=== PATIENT | female | born 1945 | race Caucasian/White ===

== ENCOUNTER 2018-05-01 07:30 | Inpatient (IN) ==
[2018-06-05] MEDS ORDERED: Vancomycin Inj 1gm vial ONE ×2 (05:10→07:04)
[2018-06-05] MEDS ORDERED: ceFAZolin Inj 2gm (Premix) 2 GM/50 ML BAG IV ONE ×2 (05:10→06:00)
[2018-06-05] MEDS ORDERED: LIDOCAINE W/ SODIUM BICARB 0.5 ML SYR ONE (05:11)
[2018-06-05] MEDS ORDERED: Sodium Chloride 0.9% 250 ML ONE ×2 (05:11→05:31)
[2018-06-05] MEDS ORDERED: Lactated Ringers 1,000 ML PRIMARY IV ONE ×3 (05:11→09:50)
[2018-06-05] MEDS ORDERED: LIDOCAINE W/ SODIUM BICARB 0.5 ML SYR SUBD ONE (06:00)
[2018-06-05] MEDS ORDERED: Nasal Sanitizer POPSWAB ampule 3 AMP (Nozin) PREOP DOSE ENOS SCH (06:00)
[2018-06-05 06:30] LABS: BILIRUBIN,URINE NEGATIVE (NEG); CLARITY,URINE CLEAR (CLEAR); COLOR,URINE YELLOW (Y); GLUCOSE, URINE (UA) NEGATIVE (NEG); OCCULT BLOOD,URINE NEGATIVE (NEG); PH,URINE 6.5 (5.0-8.5); PROTEIN,URINE NEGATIVE (NEG); UROBILINOGEN,URINE 0.2 EU/dL (0.2)
[2018-06-05 06:34] LABS: BACTERIA,URINE FEW; SQUAMOUS EPITHELIAL CELL,UR MANY; URINE CASTS FEW; URINE SAMPLE TYPE CLEAN CATCH URINE
[2018-06-05] MEDS ORDERED: Gentamicin Inj 40 MG/ML VIAL ONE (07:03)
[2018-06-05] MEDS ORDERED: Propofol 2,000 MG/200 ML VIAL IV ONE (07:03)
[2018-06-05] MEDS ORDERED: Sodium Chloride 0.9% vial 40 ML ONE (07:03)
[2018-06-05] MEDS ORDERED: BUPivacaine Liposome/PF (Exparel) Inj 20ml vial INFIL ONE (07:04)
[2018-06-05] MEDS ORDERED: BACITRACIN 50,000 UNIT VIAL IRRIG ONE ×2 (07:04→12:23)
[2018-06-05 07:10] LABS: BLOOD UREA NITROGEN 19 mg/dL (7-22)
[2018-06-05] MEDS ORDERED: REMIFENTANIL 1 MG/1 ML IV ONE ×2 (07:13→12:32)
[2018-06-05] MEDS ORDERED: fentaNYL Inj 250 MCG/5 ML VIAL ONE (07:13)
[2018-06-05] MEDS ORDERED: MIDAZOLAM 5 MG/1 ML ONE (07:13)
[2018-06-05] MEDS ORDERED: REMIFENTANIL HCL 2 MG VIAL IV ONE (07:13)
[2018-06-05 07:15] LABS: BASOPHILS # (AUTO) 0.03 10*3/UL; BASOPHILS % (AUTO) 0.4 % (0-1); EOSINOPHILS # (AUTO) 0.42 10*3/UL; EOSINOPHILS % (AUTO) 6.3 % (0-8); Hematocrit [HCT] 43.3 % (37.0-47.0); Hemoglobin [HGB] 15.8 g/dL (12.0-16.0); LYMPHOCYTES # (AUTO) 2.69 10*3/uL; MEAN CORPUSCULAR HGB CONC 36.5 g/dL (33-37); MEAN CORPUSCULAR VOLUME 85.1 FL (81-99); MEAN PLATELET VOLUME 10.3 FL (7.4-12.2); MONOCYTES # (AUTO) 0.55 10*3/UL (0.3-0.8); MONOCYTES % (AUTO) 8.2 % (5-15); NEUTROPHILS # (AUTO) 2.97 10*3/UL; NEUTROPHILS % (AUTO) 44.7 % (50-80); RED BLOOD COUNT 5.09 10^6/uL (4.20-5.40)
[2018-06-05 07:18] LABS: PLATELET MORPHOLOGY COMMENT NORMAL MORPHOLOGY (NORM); RBC MORPHOLOGY COMMENT NORMAL MORPHOLOGY (NORM); WBC MORPHOLOGY COMMENT NORMAL MORPHOLOGY (NORM)
[2018-06-05] MEDS ORDERED: VECURONIUM BROMIDE 10 MG VIAL ONE (07:20)
[2018-06-05] MEDS ORDERED: KETAMINE HCL 100 MG/2 ML SYRINGE IV ONE (07:22)
[2018-06-05] MEDS ORDERED: SCOPOLAMINE HYDROBROMIDE 1.5 MG - 1 EACH PATCH TRANSDERM ONE (07:25)
[2018-06-05] MEDS ORDERED: Acetaminophen 1000mg Inj 1,000 MG/100 ML VIAL IV ONE (07:26)
[2018-06-05] MEDS ORDERED: BUPIVACAINE 0.25% W/ EPI - 10 ML VIAL ONE (08:02)
[2018-06-05] MEDS ORDERED: PHENYLEPHRINE 10,000 MCG/1 ML VIAL ONE (08:20)
[2018-06-05] MEDS ORDERED: DEXAMETHASONE PF 10 MG/1 ML VIAL ONE (08:32)
[2018-06-05] MEDS ORDERED: Hetastarch 6% + NS 500 ML IV ONE (08:43)
[2018-06-05] MEDS ORDERED: ONDANSETRON 4 MG/2 ML VIAL ONE (09:50)
[2018-06-05] MEDS ORDERED: TRANEXAMIC ACID 1,000 MG / 10 ML VIAL ONE (10:27)
[2018-06-05] MEDS ORDERED: Propofol 1,000 MG/100 ML VIAL IV ONE (10:33)
[2018-06-05] MEDS ORDERED: Sodium Chloride 0.9% vial 10 ML ONE (12:23)
[2018-06-05] MEDS ORDERED: PROPOFOL 10 MG/1 ML (200 MG/20 ML) VIAL IV ONE (13:14)
[2018-06-05] MEDS ORDERED: Prochlorperazine Edisylate Inj 10mg/2ml vial IVP PRN ×2 (14:24→15:47)
[2018-06-05] MEDS ORDERED: LIDOCAINE W/ SODIUM BICARB 0.5 ML SYR SUBD PRN (14:24)
[2018-06-05] MEDS ORDERED: ATROPINE SULFATE 0.4 MG/1 ML VIAL IVP PRN (14:24)
[2018-06-05] MEDS ORDERED: HYDROmorphone 2 MG/1 ML IVP PRN (14:24)
--- NOTE | 2018-06-05 14:27 | CRNA.PROGR ---
Anesthesia Recovery Phase I - Post Anesthesia Evaluation Patient's Condition on Arrival in Phase I: Stable Patient's Condition on Arrival in Phase II: Stable Pain Level: 2
--- NOTE | 2018-06-05 14:27 | CRNA.PROGR ---
Anesthesia Time - Procedure/Recovery Time Start Date: 06/05/18 End Date: 06/05/18 Anesthesia : Time In: 07:36 Anesthesia : Time Out: 14:13 Anesthesia : Total Time: 397 - Total Anesthesia Time Total Anesthesia Time (minutes): 397 - Other Weight: 78.471 kg Height: 5 ft 7 in Body Mass Index (BMI): 27.1 Physical Status: P2 (HTN,AGE) Anesthesia Type: General Anesthesia : ET
--- NOTE | 2018-06-05 14:28 | CRNA.PROGR ---
Post Anesthesia Phase II - Post Anesthesia Phase II Patient Stable and Discharged To: Med/Surg Care Assumed By Surgeon: Brent Payne MD Temperature: 96.8 F Pulse Rate: 80 Respiratory Rate: 16 Blood Pressure: 129/91 Pulse Ox: 95 Total Damaris Score at Discharge: 9 Post Anesthesia Discharge Criteria Met: Yes
[2018-06-05] MEDS ORDERED: Lactated Ringers 1,000 ML PRIMARY IV SCH (14:30)
[2018-06-05] MEDS ORDERED: HYDROmorphone 2 MG/1 ML ONE (15:01)
--- NOTE | 2018-06-05 15:03 | GEN.OPNOTE ---
Operative Note Surgery Date: 06/05/18 Preoperative Diagnosis: 1. Low back pain. 2. Left lower extremity radiculopathy. 3. Right lower extremity radiculopathy. 4. Multilevel lumbar degenerative disc disease. 5. Multilevel lumbar spondylosis, most advanced L4- 5 with facet arthropathy/hypertrophy and widening of the facet joints and fluid in the facet joints bilaterally. 6. Anterior listhesis L4 on L5. 7. Moderately severe lumbar stenosis L4-5 with bilateral lateral recess stenosis L4-5, worse on the left. Postoperative Diagnosis: 1. Low back pain. 2. Left lower extremity radiculopathy. 3. Right lower extremity radiculopathy. 4. Multilevel lumbar degenerative disc disease. 5. Multilevel lumbar spondylosis, most advanced L4- 5 with facet arthropathy/hypertrophy and widening of the facet joints and fluid in the facet joints bilaterally. 6. Anterior listhesis L4 on L5. 7. Severe lumbar stenosis L4-5 with bilateral lateral recess stenosis L4-5, worse on the left. Procedure: 1.) Partial L4 laminectomy with medial facetectomies and foramino tomies for decompression of the severe central canal, lateral recess, and neuroforaminal stenosis at the L4-5 level. (CPT code: 81376). 2.) Arthrodesis, combined posterolateral and posterior interbody technique, L4-5. (CPT code: 90829). 3.) Insertion 10 mm x 11 mm x [address] titanium lumbar interbody cage filled in the center with autograft into the L4-5 interspace for fusion of the L4-5 interspace. (CPT code: 21682). 4.) Non-segmental posterolateral instrumentation L4-5 using the [employer] Deedee 3 pedicle screw and emilie system. (CPT code: 58448). 5.) Use of autograft, harvested through the same incision, cleaned of soft tissue and morselized, for interbody and posterolateral fusion. (CPT code: 16764). 6.) Use of 20cc [employer] Vitoss Bimodal synthetic bone fusion product/promotor (allograft) and 20 cc [employer] BIO DBM Putty Plus cancelleous (allograft) for interbody and posterolateral fusion. (CPT code: 86797). 7.) Use of the [employer] computer assisted neuronavigation sys tem for cannulization of the L4 and L5 pedicles bilaterally for the subsequent placement of the L4 and L5 pedicle screws bilaterally. (CPT code: 45247). 8.) Use of intra-operative fluoroscopy for localization of the correct surgical level and for final confirmation of the position of the L4-5 intervertebral cage and final confirmation of the position of the L4-5 posterolateral hardware elements. 9.) Use of intra-operative neuromonitoring including free running EMG's, triggered EMG's, and SSEP's. Surgeon: Brent Payne MD Casino Cage Supervisor: DARRYL Paul Anesthesia Provider: Radha Sparks CRNA Anesthesia Type: General (500) Estimated Blood Loss (mL): 500 Fluids: See anesthesia record Pathology: None Indications: Ms. Paulina Bernabe is a 72 year old female with back pain that gets to a 9/10 in intensity and she has a difficult time walking secondary to her back pain. She also has pain that radiates through her left buttocks and hip and through the posterior aspect of her thigh and calf and down the ankle. She denies any weakness but did have numbness and tingling in her feet bilaterally secondary to neuropathy. Ms. Bernabe had an MRI scan that demonstrated autofusion of the L5-S1 level with adjacent level degenerative disc disease and advanced arthropathy and hypertrophy at the adjacent L4-5 facet joints with anterolisthesis of L4 and L5 with widening of the facet joints and fluid in the facet joints, resulting in moderately severe lumbar central canal stenosis and bilateral lateral recess stenosis worse on the left. Ms. Bernabe failed to improve with non-operative therapies. We discussed proceeding with an L4-5 lumbar interbody and posterolateral instrumented fusion to durably address her symptoms and she wished to proceed with that surgery for which she presents today. Findings: 1.) Severe lumbar central canal stenosis, L4-5. 2.) Severe bilateral lateral recess stenosis, L4-5. 3,) Severe bilateral neuroforaminal stenosis, L4-5. 4.) Dural adhesions to thickened ligamentum flavum and bony canal secondary to epidural steroid material. 5.) Marked facet arthropathy and hypertrophy, L4-5 with marked widening of the facet joint on the right. 6.) Facet joint arthropathy with widening of the facet joint, L3-4 on the left. Complications: Small, 2-3 mm, linear durotomy lateral thecal sac on the left just rostral to the L4-5 disc space sewn up primarily with 6-0 prolene suture; water tight closure by Valsalva maneuver. Operative Summary: Ms. Lea was met in the pre-operative area. Her surgical history and physical in her chart was reviewed. I reviewed with her the procedure to be performed and we were in agreement on the procedure and this matched what was written on the patient's consent form. I answered any questions that she or her had before she was taken back to the operating room suite. Ms. Bernabe was brought back to the operating room suite. She was put under general anesthesia and intubated by the anesthesia staff. She had a Barrios catheter placed or bladder for the procedure. She had pneumatic compression hose placed on her lower legs bilaterally. The Srinivasa was carefully rolled over onto the Carroll surgical table. Her arms were gently positioned upwards with her shoulders abducted less than 90. Her arms were well-padded with foam padding on top of the padding the surgical armboards. The region of her chest and axilla was checked bilaterally to make sure that there were no pressure points over the region of the brachial plexus bilaterally. Her breasts were checked be below the chest pad of the Carroll table with no pressure points over the nipples. All bony prominences were well padded. Her Barrios catheter was checked be free from kinks. Her pneumatic compression hose was attached and pneumatic compression device. The C-arm fluoroscopy unit was used to help localize the skin incision for the approach to the intended surgical level. The skin was marked with a skin marker and crosshatches were made with a skin marker as well. Ms. Bernabe was prepped and draped in the usual and standard fashion. She was given 2 g of Ancef and a gram of vancomycin IV for perioperative antibiosis. She was given 10 mg of Decadron IV. A standard surgical timeout was performed identifying the correct patient, the correct procedure, and the correct equipment being available for the procedure. The intended skin incision was injected subcutaneously with quarter percent Marcaine with 1 in 200,000 epinephrine. 10 mL of local anesthetic was used. The skin was incised with a 10 blade scalpel and all dermal and superficial bleeding points were controlled with bipolar cautery. Dissection was continued down to the subcutaneous tissue to the lumbar fascia. The lumbar fascia was incised along the borders of the spinous processes and subperiosteal dissection was performed down the spinous processes and out over the lamina with Bovie cautery. When the inferior aspect of the lamina was identified a [place] 4 was placed underneath the lamina and the level was localized with lateral fluoros copy. Continued subperiosteal dissection was performed until the final exposure was of the inferior aspect the L3 lamina of the L4 lamina and the L5 lamina. The dissection was continued laterally over the L3-4 and L4-5 and L5-S1 facet joints and out laterally over the L4 and L5 transverse processes. Cerebellar Gelpi retractors were placed for self-retaining retraction. Soft tissue was cleaned over the posterior aspect of the spine using Bovie cautery as well as a large Leksell rongeur. Extensive decortication of the L4 and L5 transverse processes as well as the lateral aspect of the L3-4 facet joint and the lateral and posterior aspect of the L4-5 facet joint after removing the hypertrophied posterior aspect of the L4-5 facet joint with a large Leksell rongeur bilaterally was performed. The L5 lamina was decorticated as well. All decortication was performed with a high-speed Pusher drill with a matchstick bit. The bone dust created was collected and saved to be used as autograft for the fusion portion of the procedure. The Shaun neuro navigation reference arc was securely attached to the L3 spinous process and a spin was performed with the [facility] 3-D fluoroscopy unit. The Shaun neuro navigation pedicle probe was then used to cannulate the L4 and L5 pedicles bilaterally. A Jamshidi needle was then inserted into the left L4 pedicle and 10 mL of vertebral body bone marrow was collected and used to saturate 10 mL of the [employer] Vitoss synthetic bone product intended for the posterior lateral fusion and the Jamshidi needle was then placed into the left L5 pedicle and another 10 mL of vertebral body bone marrow was collected and used to saturate the second 10 mL of the Vitoss synthetic bone product. The internal aspects of the pedicles were palpated with a small ball-tip instrument. The pedicles were then tapped with the appropriate size Shaun Rudy 3 pedicle tap. The internal aspect of the pedicles were palpated with a small ball-tip instrument again. The pedicle screws were then placed. 5.5 x 55 mm pedicle screws were placed into the L4 pedicles bilaterally. 6.5 mm x 50 mm pedicle screws were placed into the L5 pedicles bilaterally. Ms. Bernabe's bone was somewhat soft but the pedicle screws obtained good purchase in the pedicle and vertebral body bone at each level bilaterally. The pedicle screws were then interrogated with triggered EMGs all demonstrating sufficiently high impedance with the lowest impedance recording being 26 mm indicating that all the pedicle screws were not in close proximity to nerve str uctures. Another spin was performed with the [employer] 3-D fluoroscopy unit providing further confirmation that the pedicle screws were indeed confined within the confines of the pedicles at each level bilaterally and that the pedicle screws were all bi-cortical or nearly bi-cortical in purchase as intended. Attention was turned to the decompression portion of the procedure. The L4 spinous process was removed with a large Leksell rongeur. The L4 lamina was thinned down with the same instrument. A partial laminectomy of L4 with medial facetectomies and foraminotomies bilaterally was then performed with the [employer] high-speed drill with a matchstick bit as well as with various size Kerrison punches. Surgical findings included severe central canal stenosis and severe bilateral lateral recess stenosis and severe bilateral neuroforaminal stenosis secondary to bony arthropathy and ligamentous hypertrophy. The dura was found to be adherent to the epidural venous complex as well as to the ligamentum flavum and the bony aspects of the canal secondary to pasty residual material in the epidural space from previous lumbar epidural steroid injections. During the decompression a small incidental durotomy occurred on the left lateral aspect of the thecal sac just rostral to the L4-5 disc space measuring 2-3 mm in length and linear in configuration with some CSF leak from the dural rent. The dural rent was sewn up primarily with 6-0 Prolene suture. Subsequent Valsalva maneuver demonstrated no further leak of CSF. The thecal sac quickly regained its normal turgor. The medial facetectomy on the left was extended laterally to provide the proper exposure needed for the interbody fusion intended for this level. The lateral extension of the medial facetectomy was performed with a high-speed drill with a matchstick bit. A [place] 4 instrument was used to carefully dissect the soft tissue adjacent to the takeoff of the L5 nerve root identifying the L4-5 disc space. The Rico nerve root retractor was used to gently retract the thecal sac and the takeoff the L5 nerve root and epidural veins over the disc space were coagulated with bipolar cautery turned down to a low setting and then cut with microscissors. An annulotomy was performed in the L4-5 disc space with a 15 blade scalpel and disc material being removed with a pituitary rongeur. Additional disc and cartilaginous endplate was loosened in the disc space using the K2 disc space anita in 1 mm increments from 7 mm disc space shaver to a 9 mm disc space shaver. Between the disc space aniat additional disc material was removed from the interspace using pituitary rongeur. The large Radha down-biting curet was used to loosen disc laterally in the L4-5 disc space bilaterally with the fragments being removed with a pituitary rongeur. The large Radha down-biting curet was then used to decorticate the inferior L4 endplate and the superior L5 endplate in the L4-5 interspace. The interspace was then irrigated with bacitracin irrigation. Approximately 3-3 and half cc of Shaun BIO DBM Putty Plus cancelleous (allograft) was then placed in the interspace and moved anteriorly with a bone tamp. The interspace was then sized for the appropriate size lumbar interbody cage. A 10 mm x 11 mm x [address] titanium lumbar interbody cage was selected and filled in the center with autograft and inserted into the L4-5 interspace using the edge trimming machine operator. The cage was gently countersunk and rotated with a bone tamp and mallet. The cage obtained good purchase between the L4 and L5 endplates. The final position of the intervertebral cage was confirmed with lateral fluoroscopy. Attention was turned back to the leads rotation portion of the procedure. A 6.0 mm x 35 mm pre-bent Shaun Rudy 3 titanium emilie was selected and placed in the [place] of the L4 and L5 pedicle screws on the right and a 6.0 mm x 45 mm pre- bent Shaun Rudy 3 titanium emilie was placed into the [place] of the L4 and L5 pedicle screws on the left. Set screws were placed over the rods in the tulips of each of the pedicle screws which were tightened down hand tight initially and then tightened down to their final tightness using the torque/counter torque device. The surgical site was irrigated with hydrogen peroxide solution. The surgical site was then pulse lavaged with 3 L of vancomycin/bacitracin/gentamicin solutio n. The paraspinous musculature was retracted and 10 mL of [employer] Vitoss Bimodal synthetic bone product (allograft) saturated with a 10 mL of vertebral body bone marrow was then placed lateral to the hardware construct on each side from the L4 transverse process to over the L5 transverse process bilaterally. The remaining autograft was then split and placed lateral to the hardware construct as well. The remaining approximately 17 mL of Shaun BIO DBM Putty Plus cancelleouus was then split with half of this product being placed lateral to the hardware construct over the bone chips and Vitoss synthetic bone product from the L4 transverse process to the L5 transverse process bilaterally to provide extra bone product for fusion and also told bone chips in place. The canal lateral recesses were inspected for any bone chips and any identified were removed with forceps. The canal lateral recesses were then irrigated with a small amount bacitracin irrigation which was subsequently removed with suction. Tisseel tissue sealant was then placed over the durotomy repair filling the lateral recess bilaterally and covered over the exposed dura dorsally. A piece of compressed Gelfoam was then placed across the canal. FloSeal hemostatic agent was then placed over the Gelfoam. The surgical site was quite dry and because of this and the small incidental durotomy it was decided not to place a surgical drain. The closure portion of the procedure was begun. The lumbar fascia was closed tightly with #1 Vicryl suture in an interrupted fashion. The surgical site was irrigated again with bacitracin irrigation. The deep subcutaneous tissue and fascia was re-approximated with 2-0 Vicryl suture in an interrupted fashion. 20 mL of Exoperel deluded with 10 mL of 1/4 percent Marcaine was then injected all around the incision in the subcutaneous tissue. The dermis and superficial subcutaneous tissue was reapproximated with 3-0 Vicryl suture in an inverted interrupted fashion. The Ioban drape was pulled back from the skin edges and the final layer of closure was performed surgical stainless steel zoila. The incision was cleansed with bacitracin soaked sponge and then dried with sterile dry sponge. The incision was then dressed with a Mepilex dressing after using skin prep around the incision. All surgical drapes removed from Ms. Bernabe. She was carefully rolled o trudi onto the PACU stretcher. She was awoken and extubated by the anesthesia staff. She was taken the recovery room in stable condition. All surgical counts reported as correct by the scrub and circulating personnel. A physician's periodontal assistant, Mrs. Aretha Smith PA-C, assisted with the procedure including the exposure and closure portions of the procedure. She provided irrigation and suctioning throughout the procedure. She skillfully and carefully retracted the nerve structures during the more critical portions of the procedures such as the discectomy and intervertebral cage placement portions of the procedure.
[2018-06-05] MEDS ORDERED: MAGNESIUM CITRATE 296 ML SOLUTION PO PRN (15:47)
[2018-06-05] MEDS ORDERED: MAGNESIUM 400 MG/5 ML - 30 ML (MILK OF MAGNESIA) PO PRN (15:47)
[2018-06-05] MEDS ORDERED: PROMETHAZINE 25 MG/1 ML VIAL IM PRN (15:47)
[2018-06-05] MEDS ORDERED: DOCUSATE 100 MG CAPSULE PO PRN (15:47)
[2018-06-05] MEDS ORDERED: Vancomycin-PHA to Dose IV SCH (15:47)
[2018-06-05] MEDS ORDERED: BISACODYL 5 MG TABLET PO PRN (15:47)
[2018-06-05] MEDS ORDERED: Ondansetron ODT Tab 4 MG TAB PO PRN (15:47)
[2018-06-05] MEDS ORDERED: ONDANSETRON 4 MG/2 ML VIAL IVP PRN (15:47)
[2018-06-05] MEDS ORDERED: Fleet Enema 133ml RECTAL PRN (15:47)
[2018-06-05] MEDS ORDERED: MORPHINE SULFATE 2 MG/1 ML IVP PRN (15:47)
[2018-06-05] MEDS ORDERED: ESTROGENS,CONJUGATED 30 GM CREAM VAGINAL SCH (15:47)
--- NOTE | 2018-06-05 16:39 | NEURO.PROG ---
Subjective Post Op Day: 0 Pain Management: PO Barrios Catheter: Yes Diet: Regular Additional Details: Awake, alert, and oriented. Lying comfortably in bed on medical/surgical floor. Denies headache. Back sore. Denies leg symptoms. Moving all extremities well. Knee flexion/dorsiflexion/plantarflexion all strong when tested in PACU. PLAN: 1.) Continue post-operative antibiotics. 2.) Continue post-operative pain control. 3.) Advance diet. 4.) Mobilize. Objective : Data - Labs CBC and BMP: 06/05/18 06:42 06/05/18 06:42 - Vital Signs Vital Signs and I&O: Vital Signs - Last Taken Temperature 98.2 F 06/05/18 15:12 Pulse Rate 74 06/05/18 15:57 Respiratory Rate 17 06/05/18 15:57 Blood Pressure 154/79 06/05/18 15:57 Pulse Ox 98 06/05/18 15:57 Intake and Output (24hr x 4 totals) 06/03/18 06/04/18 06/05/18 06/06/18 05:59 05:59 05:59 05:59 Intake Total 3600 / 3600 Output Total 975 / 975 Balance 2625 / 2625
[2018-06-05] MEDS: traMADol 50 MG TABLET PO PRN ×2 (17:02→22:33)
[2018-06-05] MEDS: ceFAZolin Inj 1 GM in Sodium Chloride 0.9% 100 ML IV SCH (18:38)
[2018-06-05] MEDS: DIAZEPAM 5 MG TABLET PO PRN (19:03)
[2018-06-05] MEDS ORDERED: LABETALOL 20 MG/4 ML (5 MG/1 ML) SYRINGE IVP PRN (20:04)
[2018-06-05] MEDS ORDERED: POTASSIUM CHLORIDE 20 MEQ TAB PO ONE (20:05)
[2018-06-05] MEDS: ALPRAZolam Tab 0.25 MG TABLET PO SCH (20:09)
[2018-06-05] MEDS: Ropinirole Tab 0.25 MG TAB PO SCH (20:09)
--- NOTE | 2018-06-05 20:12 | PDOC ---
HPI - History of Present Illness Date of Service: 06/05/18 Time of Service: 17:00 Chief Complaint: back pain History of Present Illness: This is a very pleasant 73 YO female with back pain, HTN, hypothyroidism, who presented today for back surgery with Dr. Payne. See his surgical notes regarding the procedure performed. Post operatively, the patient states her back is sore with post surgical pain, no pain down her legs. She denies chest pain, shortness of breath, nausea or vomiting. She states she does best with tramadol for pain versus other narcotics which make her vomit. She states she has not had a heart attack or stroke. She says that she has had lower extremity edema for the past three months but does not have a history of an echocardiogram. Past Medical History Medical History: 1. HTN. 2. hypothyroidism. 3. back pain. 4. Hx colon cancer, 6.5 years ago, s/p chemo, no radiation, has had 3 colonoscopies that were negative since. Surgical History: 1. knee surgery. 2. back surgery today. 3. Hx colon cancer surgery Pertinent Family History: significant for CAD and diabetes in both of her parents. Past Social History: does not smoke or drink alcohol. . has two healthy sons. lives in [place], [place]. Tobacco Use: Never Smoker In the Past 12 Months, Have Used or Abuse Any of the Following Substance: None Alcohol Use: None Medication / Allergies Home Medications: Home Medications Medication Instructions Recorded Confirmed Type alprazolam 0.25 mg tablet 0.25 mg PO BID 01/14/18 06/05/18 History cetirizine 10 mg capsule 10 mg PO DAILY 01/14/18 06/05/18 History conjugated estrogens 0.625 mg/gram 0.625 mg TOPICAL ONCE g 01/14/18 06/05/18 History vaginal cream felodipine ER 10 mg 10 mg PO QDAY 01/14/18 06/05/18 History tablet,extended release 24 hr ibuprofen 200 mg tablet 400 mg PO Q4-6H PRN 01/14/18 06/05/18 History lactobacillus combination no.9 4 4,000 mmu cells PO QDAY 01/14/18 06/05/18 History billion cell capsule levothyroxine 125 mcg capsule 125 mcg PO QDAY 01/14/18 06/05/18 History losartan 100 1 tab PO QDAY 01/14/18 06/05/18 History mg-hydrochlorothiazide 12.5 mg tablet metoprolol succinate ER 25 mg 25 mg PO QDAY 01/14/18 06/05/18 History tablet,extended release 24 hr multivitamin tablet 1 tab PO QDAY 01/14/18 06/05/18 History omeprazole 40 mg capsule,delayed 40 mg PO QDAY 01/14/18 06/05/18 History release ropinirole 0.25 mg tablet 0.25 mg PO QHS 01/14/18 06/05/18 History celecoxib 200 mg capsule 200 mg PO BID PRN #60 cap 02/14/18 06/05/18 Rx Tramadol HCl [Ultram] 1 - 2 ea PO QHS PRN 06/05/18 06/05/18 History Zolpidem Tartrate [Ambien] 5 mg PO QHS PRN 06/05/18 06/05/18 History Allergies/Adverse Reactions: Allergies Allergy/AdvReac Type Severity Reaction Status Date / Time Narcotics AdvReac NAUSEA Uncoded 06/05/18 15:58 Review of Systems - Respiratory Respiratory: REPORTS: Negative System Review - Cardiovascular Cardiovascular: REPORTS: Negative System Review - Gastrointestinal Gastrointestinal / Abdominal: REPORTS: Negative System Review - Genitourinary Genitourinary: REPORTS: Negative System Review - Musculoskeletal Musculoskeletal: REPORTS: Back Pain, See HPI Exam - Vitals Vital Signs: Vital Signs Temperature 98.2 F Temperature Source Temporal Artery Scan Pulse Rate [Pulse Oximeter] 83 Pulse Rate 74 Respiratory Rate 20 Blood Pressure [Left Arm] 169/74 Blood Pressure 154/79 Pulse Ox 96 Oxygen Flow Rate 1 Oxygen Delivery Method Nasal Cannula Height 5 ft 7 in Weight 173 lb - General General Appearance: No Acute Distress, Cooperative - Head Head Exam: Normal Inspection, Normocephalic, Atraumatic - Eye Eye Exam: POSITIVE: No Scleral Icterus - ENT ENT Exam: POSITIVE: Mucous Membranes Moist - Neck Neck Exam: Normal Inspection, No Tenderness, No Lymphadenopathy, No Thyromegaly, JVP is not Raised - Respiratory Respiratory Exam: POSITIVE: Clear to Auscultation - Bilaterally, Breathing Non Labored - Cardiovascular Cardiovascular Exam: POSITIVE: RRR, No Murmur, No Clicks, No Gallops, No Rubs, No JVD - GI/Abdominal GI/Abdominal Exam: POSITIVE: Normal Bowel Sounds, Non Tender, Non Distended, Soft - Rectal Rectal Exam: POSITIVE: Deferred - External Exam: POSITIVE: Deferred Exam: POSITIVE: Deferred - Extremities Extremities Exam: POSITIVE: No Clubbing Present, No Cyanosis Present Additional Extremities Exam Details: trace ankle edema - Neurological Neurological Exam: POSITIVE: Alert, Oriented x 3, No Facial Droop, Speech Intact / Clear - Psychiatric Psychiatric Exam: POSITIVE: Normal Affect, Normal Mood Results - Labs CBC and BMP: 06/05/18 06:42 06/05/18 06:42 Additional Lab Results: Laboratory Results 06/05/18 06/05/18 06/05/18 06:22 06:42 06:42 WBC 6.67 RBC 5.09 Hgb 15.8 Hct 43.3 MCV 85.1 MCH 31.0 MCHC 36.5 RDW Std Deviation 40.4 RDW Coeff of Tarun 13.2 Plt Count 262 MPV 10.3 Immature Gran % (Auto) 0.1 Neut % (Auto) 44.7 L Lymph % (Auto) 40.3 Callahan % (Auto) 8.2 Eos % (Auto) 6.3 Baso % (Auto) 0.4 Immature Gran # (Auto) 0.01 Neut # (Auto) 2.97 Lymph # (Auto) 2.69 Callahan # (Auto) 0.55 Eos # (Auto) 0.42 Baso # (Auto) 0.03 WBC Morphology Comment Normal morphology Plt Morphology Comment Normal morphology RBC Morph Comment Normal morphology Sodium 140 Potassium 3.7 L Chloride 103 Carbon Dioxide 24 Anion Gap 13 BUN 19 Creatinine 0.5 BUN/Creatinine Ratio 38.00 H Glucose 98 Calculated Osmolality 291.0 Calcium 10.0 Ur Collection Type Clean catch urine Urine Color Yellow Urine Clarity Clear Urine pH 6.5 Ur Specific [place] 1.015 Urine Protein Negative Urine Glucose (UA) Negative Urine Ketones Negative Urine Occult Blood Negative Urine Nitrate Negative Urine Bilirubin Negative Urine Urobilinogen 0.2 Ur Leukocyte Esterase Moderate Urine RBC 1-3 Urine WBC 10-15 Ur Squamous Epith Cells Many Ur Renal Epithelial Cell None Urine Crystals None Urine Bacteria Few Urine Casts Few Urine Mucus Moderate Urine Trichomonas None Urine Yeast None Blood Type Antibody Screen 06/05/18 06:42 WBC RBC Hgb Hct MCV MCH MCHC RDW Std Deviation RDW Coeff of Tarun Plt Count MPV Immature Gran % (Auto) Neut % (Auto) Lymph % (Auto) Callahan % (Auto) Eos % (Auto) Baso % (Auto) Immature Gran # (Auto) Neut # (Auto) Lymph # (Auto) Callahan # (Auto) Eos # (Auto) Baso # (Auto) WBC Morphology Comment Plt Morphology Comment RBC Morph Comment Sodium Potassium Chloride Carbon Dioxide Anion Gap BUN Creatinine BUN/Creatinine Ratio Glucose Calculated Osmolality Calcium Ur Collection Type Urine Color Urine Clarity Urine pH Ur Specific [place] Urine Protein Urine Glucose (UA) Urine Ketones Urine Occult Blood Urine Nitrate Urine Bilirubin Urine Urobilinogen Ur Leukocyte Esterase Urine RBC Urine WBC Ur Squamous Epith Cells Ur Renal Epithelial Cell Urine Crystals Urine Bacteria Urine Casts Urine Mucus Urine Trichomonas Urine Yeast Blood Type O POSITIVE Antibody Screen Negative Assessment and Plan - Patient Problems (1) Hypertension Current Visit: Yes Status: Acute Code(s): I10 - Essential (primary) hypertension Qualifiers: Hypertension type: essential hypertension Qualified Code(s): I10 - Essential (primary) hypertension (2) Chronic back pain Current Visit: Yes Status: Acute Code(s): M54.9 - Dorsalgia, unspecified; G89.29 - Other chronic pain Qualifiers: Back pain location: low back pain Back pain laterality: left Sciatica presence: with sciatica Sciatica laterality: sciatica of left side Qualified Code(s): M54.42 - Lumbago with sciatica, left side; G89.29 - Other chronic pain (3) GERD (gastroesophageal reflux disease) Current Visit: Yes Status: Chronic Code(s): K21.9 - Gastro-esophageal reflux disease without esophagitis Qualifiers: Esophagitis presence: without esophagitis Qualified Code(s): K21.9 - Gastro-esophageal reflux disease without esophagitis (4) History of colon cancer Current Visit: Yes Status: Chronic Code(s): Z85.038 - Personal history of other malignant neoplasm of large intestine (5) Hypothyroidism Current Visit: Yes Status: Acute Code(s): E03.9 - Hypothyroidism, unspecified Qualifiers: Hypothyroidism type: unspecified Qualified Code(s): E03.9 - Hypothyroidism, unspecified - Assessment / Plan Additional Assessment/Plan Details: resume anti-HTN medications resume thyroid replacement PRN for elevated SBP recordings looking at UA, doubt UTI, but some suggestive features so will ask for culture. labs in AM PT and OT d/w neurosurgery, dural leak, but repaired. patient probably here a couple days. To me, it makes sense to order ECHO. especially with edema. thanks for consult, will continue to assist in assessment and management of medical issues during this hospital stay.
[2018-06-05] MEDS: ACETAMINOPHEN 325 MG TABLET PO PRN (20:15)
[2018-06-06] MEDS: ceFAZolin Inj 1 GM in Sodium Chloride 0.9% 100 ML IV SCH (00:36)
[2018-06-06] MEDS: traMADol 50 MG TABLET PO PRN ×3 (04:37→19:07)
[2018-06-06] MEDS: DIAZEPAM 5 MG TABLET PO PRN ×3 (04:37→20:33)
[2018-06-06 05:58] LABS: BASOPHILS # (AUTO) 0 10*3/UL; BASOPHILS % (AUTO) 0 % (0-1); EOSINOPHILS # (AUTO) 0 10*3/UL; EOSINOPHILS % (AUTO) 0 % (0-8); Hematocrit [HCT] 31.8 % (37.0-47.0); LYMPHOCYTES # (AUTO) 1.26 10*3/uL; MEAN CORPUSCULAR HEMOGLOBIN 30.1 PG (27-31); MEAN CORPUSCULAR HGB CONC 34.6 g/dL (33-37); MEAN CORPUSCULAR VOLUME 87.1 FL (81-99); MEAN PLATELET VOLUME 10.6 FL (7.4-12.2); MONOCYTES # (AUTO) 0.79 10*3/UL (0.3-0.8); MONOCYTES % (AUTO) 8.5 % (5-15); NEUTROPHILS # (AUTO) 7.21 10*3/UL; NEUTROPHILS % (AUTO) 77.7 % (50-80); RED BLOOD COUNT 3.65 10^6/uL (4.20-5.40)
[2018-06-06 06:02] LABS: PLATELET MORPHOLOGY COMMENT NORMAL MORPHOLOGY (NORM); RBC MORPHOLOGY COMMENT NORMAL MORPHOLOGY (NORM); WBC MORPHOLOGY COMMENT NORMAL MORPHOLOGY (NORM)
--- NOTE | 2018-06-06 06:10 | NEURO.PROG ---
Subjective Post Op Day: 0 Pain Management: PO Barrios Catheter: Yes Diet: Regular Ambulating: No Additional Details: Awake, alert, oriented. No complaints. Denies headache. Back sore, but edge taken off by Tramadol. Moving all extremities well. Full/strong knee flexion/dorsiflexion/plantarflexion. PLAN: 1.) Continue post-operative antibiotics. 2.) Continue post-operative pain control. 3.) Mobilize. Objective : Data - Labs CBC and BMP: 06/06/18 05:20 06/05/18 06:42 - Vital Signs Vital Signs and I&O: Vital Signs - Last Taken Temperature 98.0 F 06/06/18 04:50 Pulse Rate 79 06/06/18 04:50 Respiratory Rate 18 06/06/18 04:50 Blood Pressure 133/67 06/06/18 04:50 Pulse Ox 93 06/06/18 04:50 Intake and Output (24hr x 4 totals) 06/04/18 06/05/18 06/06/18 06/07/18 05:59 05:59 05:59 05:59 Intake Total 5640 / 5640 Output Total 5575 / 5575 Balance 65 / 65
[2018-06-06 06:16] LABS: BLOOD UREA NITROGEN 9 mg/dL (7-22)
[2018-06-06] MEDS ORDERED: CYCLOBENZAPRINE 10 MG TABLET PO PRN (06:26)
[2018-06-06] MEDS: OMEPRAZOLE 40 MG CAPSULE PO SCH (07:50)
[2018-06-06] MEDS: ACETAMINOPHEN 325 MG TABLET PO PRN ×3 (08:10→20:32)
[2018-06-06] MEDS: LOSARTAN 50 MG TABLET PO SCH (08:56)
[2018-06-06] MEDS: Sertraline Tab 50 MG TAB PO SCH (08:57)
[2018-06-06] MEDS: Multivitamin Tab 1 TAB PO SCH (08:57)
[2018-06-06] MEDS: HYDROCHLOROTHIAZIDE 12.5 MG CAPSULE PO SCH (08:57)
[2018-06-06] MEDS: METOPROLOL SUCCINATE 25 MG SR 24H TABLET PO SCH (08:58)
[2018-06-06] MEDS: LORATADINE 10 MG TABLET PO SCH (08:58)
[2018-06-06] MEDS: FELODIPINE ER 5 MG TABLET PO SCH (08:59)
[2018-06-06] MEDS: ALPRAZolam Tab 0.25 MG TABLET PO SCH ×2 (09:15→20:33)
--- NOTE | 2018-06-06 10:52 | PTI REPORT ---
Thank you for the referral of Paulina Bernabe. She was seen on 06/06/18 for an inpatient evaluation status post lumbar fusion. SUBJECTIVE: The patient is a 73-year-old female. The patient reports she is feeling relatively good following her surgery yesterday. She states she is tired of being in bed and is ready to get up and walk. The patient states she lives with her in [place]. They have a one level home with only three steps to get in and out of their home. PAST MEDICAL HISTORY: Past medical history can be found in the patient's medical record. OBJECTIVE FINDINGS: Pain: The patient reported a pain level initially of 5/10 on the verbal analog scale (0=no pain, 10=worst pain); however, ended therapy at a 3/10 following receiving pain medication from nursing. Bed mobility: The patient was able to perform bed mobility with stand by assistance and verbal cues for proper log rolling technique. Ambulation: The patient was able to ambulate up to 100 feet continuously with walker, gait belt, and contact guard assistance with one standing rest break for up to two minutes. Strength/Range of motion: Strength and range of motion were not formally tested due to surgical precautions. She was verbally instructed on her post surgical no bending/lifting/twisting restrictions and had verbal understanding of these. ASSESSMENT: Problem List: Increased pain Decreased endurance Decreased mobility Physical Therapy Goals: To be met by discharge from inpatient: Patient will be issued and instructed on donning and doffing her lumbar back brace. Patient will be able to ambulate up to 100 feet for community and household ambulation. Patient will be able to ascend and descend three or more stairs in order to get in and out of their home. Patient will be instructed on post surgical bending/lifting/twisting restrictions. TREATMENT PLAN: Patient will be seen B.I.D during the week and one time per day over the weekend as an inpatient to address the above goals and objectives. INITIAL TREATMENT: Treatment today consisted of the initial evaluation. The patient was issued a back brace and was instructed on donning and doffing and was able to perform return demonstration both in the seated and standing position appropriately. The patient was educated on log rolling, the appropriate way to transfer in and out of bed while maintaining her surgical restrictions. The patient ambulated up to 100 feet with walker, gait belt, and lumbar brace with contact guard assistance. Following treatment the patient was transferred back in bed and instructed on self mobilization of bilateral lower extremity nerve glides with ankle pumps. FREDY
--- NOTE | 2018-06-06 12:04 | CRNA.PROGR ---
Anesthesia Note - Progress Notes Anesthesia Progress Note: Cheerful, lying in bed. Denies nausea. States pain is controlled. Rates pain as a "3". Says yesterday pain was a "7". Denies throat pain. Says throat is "scratchy". Says she's been ambulating. No apparent anesthesia problems.
--- NOTE | 2018-06-06 15:56 | PT.PROG ---
Progress Note Progress Note: S. Patient stated she is feeling a little weaker this afternoon. O. Patient ambulated 150 degrees around the nurses station, then performed log roll to get back into bed where she was left with alarm and call light. A. Patient tolerated ambulation well, she was able to ambulate with no increase in pain or problems, she did however report that she was ambulating much slower than this morning. Patient will perform stair training 06/07 AM. P. Continue POC.
--- NOTE | 2018-06-06 17:37 | PDOC(PROG) ---
Date of Service: 06/06/18 Time of Service: 17:32 Interval History: No complaints of chest pain, shortness breath, nausea or vomiting. She was walking in the halls earlier. Her back is sore but she attributes that to surgery. She states her left leg has no radiating pain and the pain she had in her back prior to surgery has gone. Her left hand swelling is better and she wondered whether or not she even needed x-rays, but they have not been x-rayed after her fall with a trip on concrete. Objective : Data - Labs CBC and BMP: 06/06/18 05:20 06/06/18 05:20 Objective : Exam - General General Appearance: No Acute Distress, Cooperative Additional General Exam Details: Vital Signs - Last Taken Temperature 97.8 F 06/06/18 16:03 Pulse Rate 79 06/06/18 16:03 Respiratory Rate 17 06/06/18 16:03 Blood Pressure 110/38 06/06/18 16:03 Pulse Ox 97 06/06/18 16:03 - Eye Eye Exam: No Scleral Icterus - ENT ENT Exam: Mucous Membranes Moist - Neck Neck Exam: JVP is not Raised - Respiratory Respiratory Exam: Clear to Auscultation - Bilaterally, Breathing Non Labored - Cardiovascular Cardiovascular Exam: RRR, No Murmur, No Clicks, No Gallops, No Rubs, No JVD - GI/Abdominal GI/Abdominal Exam: Normal Bowel Sounds, Non Tender, Non Distended, Soft - Extremities Extremities Exam: No Clubbing Present, No Edema Present, No Cyanosis Present Additional Extremities Exam Details: Bruising all along left hand both anteriorly and mostly posteriorly. Good range of motion without significant pain with range of motion. - Neurological Neurological Exam: Alert, Oriented x 3, Normal Gait (With back brace in place walking in the halls.), No Facial Droop, Speech Intact / Clear, Moves All Extremities Equally Assessment and Plan - Patient Problems (1) Left wrist pain Current Visit: Yes Status: Acute Code(s): M25.532 - Pain in left wrist (2) Hypertension Current Visit: Yes Status: Acute Code(s): I10 - Essential (primary) hypertension Qualifiers: Hypertension type: essential hypertension Qualified Code(s): I10 - Essential (primary) hypertension (3) Chronic back pain Current Visit: Yes Status: Acute Code(s): M54.9 - Dorsalgia, unspecified; G89.29 - Other chronic pain Qualifiers: Back pain location: low back pain Back pain laterality: left Sciatica presence: with sciatica Sciatica laterality: sciatica of left side Qualified Code(s): M54.42 - Lumbago with sciatica, left side; G89.29 - Other chronic pain (4) GERD (gastroesophageal reflux disease) Current Visit: Yes Status: Chronic Code(s): K21.9 - Gastro-esophageal reflux disease without esophagitis Qualifiers: Esophagitis presence: without esophagitis Qualified Code(s): K21.9 - Gastro-esophageal reflux disease without esophagitis (5) History of colon cancer Current Visit: Yes Status: Chronic Code(s): Z85.038 - Personal history of other malignant neoplasm of large intestine (6) Hypothyroidism Current Visit: Yes Status: Acute Code(s): E03.9 - Hypothyroidism, unspecified Qualifiers: Hypothyroidism type: unspecified Qualified Code(s): E03.9 - Hypothyroidism, unspecified - Assessment / Plan Additional Assessment/Plan Details: Will x-ray the left wrist and hand. I don't think there is a fracture with the good range of motion despite the bruising. I suspected soft tissue, but it has not been imaged to this point. Look specifically to see if wears any navicular bone injury based on the x-ray reads. Patient has hypertension for which she is on antihypertensives, has had edema which may be dependent as it has improved with LUIS hose, but I think given hypertension and edema, it would be a good idea to do an echocardiogram to make sure not dealing with any left-sided or right-sided congestive heart failure. Echocardiogram ordered for tomorrow. From my side, after echocardiogram is done tomorrow and if x-rays are negative on the left wrist and hand, patient could go home from a medical standpoint with continued follow-up with her primary care physician, Dr. Roman, and cardiology follow-up with Dr. Deluna.
--- NOTE | 2018-06-06 18:07 | DI ---
LEFT WRIST, 06/06/2018 5:31 PM: Clinical History: Injury. The patient fell. Bruising. Comparison Study: None at this facility. Views: AP and lateral. Soft Tissues: No soft tissue swelling. Effusion: No joint effusion present. 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 Chondrocalcinosis of the triangu lar fibrocartilage. Bones: No fracture or dislocation. Reading: No fracture or dislocation. Severe arthritis involving the triscaphe joint.
--- NOTE | 2018-06-06 18:13 | DI ---
LEFT HAND, 06/06/2018 5:31 PM: Clinical History: Injury. The patient fell. Bruising. Comparison Study: None at this facility. Comparison is made with the left wrist exam obtained at the same time. Views: AP and lateral. Soft Tissues: No soft tissue swelling. Effusion: No joint effusion present. Joints: Severe degenerative change of the triscaphe joint. Moderately severe arthritic changes presen t in the IP joint of the thumb and the PIP and DIP joints of the fingers. Mild arthritis of the MCP j oints. Bones: On the AP projection, there is a bony density overlying the base of the fourth metacarpal bone . A fracture off of the base of the fifth metacarpal bone cannot be excluded. An oblique view of the hand is recommended for further evaluation. Readin. Questionable fracture at the base of the fifth metacarpal bone on the radial side. An oblique vie w of the hand is recommended for further evaluation. 2. Severe degenerative arthritis of the triscaphe joint with moderately severe arthritic changes in the PIP and DIP joints of the fingers and DIP joint of the with mild degenerative change of the MCP j oints.
[2018-06-06] MEDS: Ropinirole Tab 0.25 MG TAB PO SCH (20:32)
[2018-06-07] MEDS: traMADol 50 MG TABLET PO PRN ×2 (02:12→08:43)
[2018-06-07] MEDS: DIAZEPAM 5 MG TABLET PO PRN (02:12)
[2018-06-07] MEDS: ACETAMINOPHEN 325 MG TABLET PO PRN (04:51)
--- NOTE | 2018-06-07 05:15 | NEURO.PROG ---
Subjective Post Op Day: 2 Pain Management: PO Barrios Catheter: No Flatus: Yes Diet: Regular Ambulating: Yes Additional Details: Paulina is awake and alert. She ambulated well with PT yestarday. She complains of surgical site pain but denies any leg pain, weakness or numbness. She has good strength with dorsi and plantar flexion and knee flexion. She has been passing gas, but has not has a bowel movement since surgery. Will give her stool softeners and progress from there as needed. Her incision is intact without erythema. She has been given post op instructions to include incision care and activity. From a neuro standpoint she is ready for discharge to home. She has a followup appointment with Dr. Payne in his [facility] on Jun 13 at 10:15. Objective : Data - Labs CBC and BMP: 06/06/18 05:20 06/06/18 05:20 - Vital Signs Vital Signs and I&O: Vital Signs - Last Taken Temperature 98.6 F 06/07/18 04:35 Pulse Rate 93 06/07/18 04:35 Respiratory Rate 18 06/07/18 04:35 Blood Pressure 129/61 06/07/18 04:35 Pulse Ox 91 06/07/18 04:35 Intake and Output (24hr x 4 totals) 06/04/18 06/05/18 06/06/18 06/07/18 05:59 05:59 05:59 05:59 Intake Total 5640 / 5640 3052 / 3052 Output Total 5575 / 5575 1450 / 1450 Balance 65 / 65 1602 / 1602
[2018-06-07] MEDS: OMEPRAZOLE 40 MG CAPSULE PO SCH (06:58)
[2018-06-07 07:40] VITALS: RESP 16
--- NOTE | 2018-06-07 08:34 | CONSULT ---
Consult Note - Consult Reason for Consult: Orthopedic Consult Primary Care Provider: NONE NONE - History of Present Illness History of Present Illness: Asked to see this patient had recent back surgery. She fell about a week ago before coming to the hospital injury her left hand and forearm. She did not go for an x-ray. Pain has been fairly minimal. X-ray of her left hand was obtained yesterday. I was asked by Dr. Leong to evaluate the patient. Exam of the left hand reveals minimal swelling. Minimal tenderness at the base the fifth metacarpal. Patient is able to make a fist. Can fully extend the fingers. There is some bruising along the forearm which is about a week old. X-rays of the wrist and hand were reviewed from yesterday. These reveal an impacted actually at the base the fifth metacarpal which appears to be extra- articular. No displacement noted. Impression: Impacted left fifth metacarpal base fracture. Plan: Based on the fact that she is using crutches and moving her hand quite well, I feel that it would be overkill to put her in a cast. She has a Velcro wrist brace on that I recommend using. She can use that for the next 2-3 weeks as needed. Should her pain worsen, she can always come in for a cast. However, feel that will be highly unlikely. Meanwhile, continue to use localized ice and Velcro Mark wrap to the hand. New patient consult level III. Past Medical History Medical History: 1. HTN. 2. hypothyroidism. 3. back pain. 4. Hx colon cancer, 6.5 years ago, s/p chemo, no radiation, has had 3 colonoscopies that were negative since. Surgical History: 1. knee surgery. 2. back surgery today. 3. Hx colon cancer surgery Pertinent Family History: significant for CAD and diabetes in both of her parents. Past Social History: does not smoke or drink alcohol. . has two healthy sons. lives in [place], [place]. Tobacco Use: Never Smoker In the Past 12 Months, Have Used or Abuse Any of the Following Substance: None Alcohol Use: None Medication / Allergies Home Medications: Home Medications Medication Instructions Recorded Confirmed Type cetirizine 10 mg capsule 10 mg PO DAILY 01/14/18 06/05/18 History conjugated estrogens 0.625 mg/gram 0.625 mg TOPICAL ONCE g 01/14/18 06/05/18 History vaginal cream felodipine ER 10 mg 10 mg PO QDAY 01/14/18 06/05/18 History tablet,extended release 24 hr ibuprofen 200 mg tablet 400 mg PO Q4-6H PRN 01/14/18 06/05/18 History lactobacillus combination no.9 4 4,000 mmu cells PO QDAY 01/14/18 06/05/18 History billion cell capsule levothyroxine 125 mcg capsule 125 mcg PO QDAY 01/14/18 06/05/18 History losartan 100 1 tab PO QDAY 01/14/18 06/05/18 History mg-hydrochlorothiazide 12.5 mg tablet metoprolol succinate ER 25 mg 25 mg PO QDAY 01/14/18 06/05/18 History tablet,extended release 24 hr multivitamin tablet 1 tab PO QDAY 01/14/18 06/05/18 History omeprazole 40 mg capsule,delayed 40 mg PO QDAY 01/14/18 06/05/18 History release ropinirole 0.25 mg tablet 0.25 mg PO QHS 01/14/18 06/05/18 History celecoxib 200 mg capsule 200 mg PO BID PRN #60 cap 02/14/18 06/05/18 Rx Zolpidem Tartrate [Ambien] 5 mg PO QHS PRN 06/05/18 06/05/18 History Cyclobenzaprine HCl [Flexeril] 10 mg PO TID PRN #90 tab 06/06/18 Rx traMADol HCl [Ultram] 100 mg PO Q6H PRN #90 tab 06/06/18 Rx Allergies/Adverse Reactions: Allergies Allergy/AdvReac Type Severity Reaction Status Date / Time Narcotics AdvReac NAUSEA Uncoded 06/06/18 06:26 Exam - Vitals Vital Signs: Vital Signs Temperature 99 F Temperature Source Temporal Artery Scan Pulse Rate [Pulse Oximeter] 77 Pulse Rate 74 Respiratory Rate 16 Blood Pressure [Right Arm] 113/58 Blood Pressure [Left Arm] 129/61 Blood Pressure 154/79 Pulse Ox 87 Oxygen Flow Rate .5 Oxygen Delivery Method Room Air Height 5 ft 7 in Weight 178 lb 9.6 oz Results - Labs CBC and BMP: 06/06/18 05:20 06/06/18 05:20
[2018-06-07] MEDS: HYDROCHLOROTHIAZIDE 12.5 MG CAPSULE PO SCH (08:43)
[2018-06-07] MEDS: Sertraline Tab 50 MG TAB PO SCH (08:43)
[2018-06-07] MEDS: METOPROLOL SUCCINATE 25 MG SR 24H TABLET PO SCH (08:43)
[2018-06-07] MEDS: LORATADINE 10 MG TABLET PO SCH (08:43)
[2018-06-07] MEDS: Multivitamin Tab 1 TAB PO SCH (08:44)
[2018-06-07] MEDS: LOSARTAN 50 MG TABLET PO SCH (08:44)
[2018-06-07] MEDS: ALPRAZolam Tab 0.25 MG TABLET PO SCH (08:44)
[2018-06-07] MEDS: FELODIPINE ER 5 MG TABLET PO SCH (08:44)
--- NOTE | 2018-06-07 10:22 | DI ---
XR CXR 1VW 06/07/2018 9:28 AM HISTORY: [facility] [place] DI ^hypoxia Comparison: None. Findings: A single portable frontal view of the chest is submitted. Images demonstrate normal aeration without focal consolidation. There is no large pneumothorax or ple ural effusion. The cardiomediastinal silhouette is within normal limits for technique. The osseous st ructures are grossly unremarkable. Impression: No radiographic evidence of acute cardiopulmonary disease.
[2018-06-07] MEDS ORDERED: POLYETHYLENE GLYCOL 3350 17 GM POWDER PO ONE (11:57)
[2018-06-07 12:01] VITALS: BP 138/70; TEMP 97.6; O2SAT 91
--- NOTE | 2018-06-07 12:02 | DCSUMMARY ---
Hospitalization Summary Admit Date: 06/05/2017 Discharge Date: 06/07/18 Primary Diagnosis:: status post lumbar surgery Hospital Course: This very pleasant 73-year-old female that presented for back surgery with Dr. Payne on 06/05/2017. Please see his notes regarding the surgical procedure. Postoperatively, the patient was admitted to the hospital in the hospital service was counseled that as well. In terms of her back surgery, her back pain significantly improved, in fact her preoperative back pain resolved and her radicular symptoms down her left lower extremity/sciatica symptoms resolved. She did have surgical/postoperative pain that was well controlled with tramadol. She does not do well with other narcotics. From a medical standpoint, she resumed her antihypertensive medications and thyroid supplementation. She did very well with her primary care issues here although she did have a noted history of some edema in her lower extremities over the last few months. Given the edema, hypertension, I felt it best to get an echocardiogram and we did that today. The results are pending. We will arrange to have that sent to her primary care physician and nanotechnology engineering technician when we get the report back. It could be dependent edema, but it is also possible that this could be sign of congestive heart failure. Although patient has normal room air oxygen saturations, when she sleeps, she does tend to desaturate. I have given her a prescription to get a sleep study with titration due to this nocturnal hypoxia to look for obstructive sleep apnea. The patient had had a fall with left hand swelling. X-rays revealed a possible fifth digit fracture at the base of the fifth digit. I did consult the orthopedic service, and they felt that this was a nonoperative fracture and to place ice on it and to use carpal tunnel brace at home. Today, the patient denies any chest pain, shortness breath, nausea or vomiting. She's had some mild constipation but is passing gas and is willing to try MiraLAX. She would like to go home. Pain is controlled and she has been cleared from the neurosurgery side to go home. Assessment and Plan: 1. As per discharge assessments noted 2. Disposition: Patient is discharged home. 3. Condition on discharge, stable and improved. 4. Diet: regular diet 5. Activities: resume activities as per restrictions from neurosurgery and physical therapy 6. Follow-Up: 1. Primary physician in one week 2. Neurosurgery as scheduled 7. Medications at the Time of Discharge: Home Medications Medication Instructions Recorded Confirmed Type cetirizine 10 mg capsule 10 mg PO DAILY 01/14/18 06/05/18 History conjugated estrogens 0.625 mg/gram 0.625 mg TOPICAL ONCE g 01/14/18 06/05/18 History vaginal cream felodipine ER 10 mg 10 mg PO QDAY 01/14/18 06/05/18 History tablet,extended release 24 hr ibuprofen 200 mg tablet 400 mg PO Q4-6H PRN 01/14/18 06/05/18 History lactobacillus combination no.9 4 4,000 mmu cells PO QDAY 01/14/18 06/05/18 History billion cell capsule levothyroxine 125 mcg capsule 125 mcg PO QDAY 01/14/18 06/05/18 History losartan 100 1 tab PO QDAY 01/14/18 06/05/18 History mg-hydrochlorothiazide 12.5 mg tablet metoprolol succinate ER 25 mg 25 mg PO QDAY 01/14/18 06/05/18 History tablet,extended release 24 hr multivitamin tablet 1 tab PO QDAY 01/14/18 06/05/18 History omeprazole 40 mg capsule,delayed 40 mg PO QDAY 01/14/18 06/05/18 History release ropinirole 0.25 mg tablet 0.25 mg PO QHS 01/14/18 06/05/18 History celecoxib 200 mg capsule 200 mg PO BID PRN #60 cap 02/14/18 06/05/18 Rx Zolpidem Tartrate [Ambien] 5 mg PO QHS PRN 06/05/18 06/05/18 History Cyclobenzaprine HCl [Flexeril] 10 mg PO TID PRN #90 tab 06/06/18 Rx traMADol HCl [Ultram] 100 mg PO Q6H PRN #90 tab 06/06/18 Rx 8. Time, care, counseling and coordination of care for this discharge is greater than 30 minutes. Exam - Vitals Vital Signs: Vital Signs Temperature 99 F Temperature Source Temporal Artery Scan Pulse Rate [Pulse Oximeter] 77 Pulse Rate 74 Respiratory Rate 16 Blood Pressure [Right Arm] 113/58 Blood Pressure [Left Arm] 129/61 Blood Pressure 154/79 On my examination she was above 90% on room air Oxygen Delivery Method Room Air Height 5 ft 7 in Weight 178 lb 9.6 oz - General General Appearance: No Acute Distress, Cooperative - Eye Eye Exam: POSITIVE: No Scleral Icterus - ENT ENT Exam: POSITIVE: Mucous Membranes Moist - Neck Neck Exam: Normal Inspection, No Tenderness, No Lymphadenopathy, JVP is not Raised - Respiratory Respiratory Exam: POSITIVE: Clear to Auscultation - Bilaterally, Breathing Non Labored - Cardiovascular Cardiovascular Exam: POSITIVE: RRR, No Murmur, No Clicks, No Gallops, No Rubs, No JVD - GI/Abdominal GI/Abdominal Exam: POSITIVE: Normal Bowel Sounds, Non Tender, Non Distended, Soft - Extremities Extremities Exam: POSITIVE: No Clubbing Present, No Edema Present, No Cyanosis Present - Neurological Neurological Exam: POSITIVE: Alert, Oriented x 3, No Facial Droop, Speech Intact / Clear, Moves All Extremities Equally - Psychiatric Psychiatric Exam: POSITIVE: Normal Affect, Normal Mood Patient Problems - Patient Problem List (1) Status post lumbar surgery Current Visit: Yes Status: Acute Code(s): Z98.890 - Other specified postp rocedural states Category: Surgical (2) Left wrist pain Current Visit: Yes Status: Acute Code(s): M25.532 - Pain in left wrist Category: Medical (3) Hypertension Current Visit: Yes Status: Acute Code(s): I10 - Essential (primary) hypertension Qualifiers: Hypertension type: essential hypertension Qualified Code(s): I10 - Essential (primary) hypertension Category: Medical (4) Chronic back pain Current Visit: Yes Status: Acute Code(s): M54.9 - Dorsalgia, unspecified; G89.29 - Other chronic pain Qualifiers: Back pain location: low back pain Back pain laterality: left Sciatica presence: with sciatica Sciatica laterality: sciatica of left side Qualified Code(s): M54.42 - Lumbago with sciatica, left side; G89.29 - Other chronic pain Category: Medical (5) GERD (gastroesophageal reflux disease) Current Visit: Yes Status: Chronic Code(s): K21.9 - Gastro-esophageal reflux disease without esophagitis Qualifiers: Esophagitis presence: without esophagitis Qualified Code(s): K21.9 - Gastro-esophageal reflux disease without esophagitis Category: Medical (6) History of colon cancer Current Visit: Yes Status: Chronic Code(s): Z85.038 - Personal history of other malignant neoplasm of large intestine Category: Medical (7) Hypothyroidism Current Visit: Yes Status: Acute Code(s): E03.9 - Hypothyroidism, unspecified Qualifiers: Hypothyroidism type: unspecified Qualified Code(s): E03.9 - Hypothyroidism, unspecified Category: Medical
--- NOTE | 2018-06-07 12:29 | PT.PROG ---
Progress Note Progress Note: S. patient stated that she feels that she is ready to go home. O. Patient ambulated 70 feet to the stair well and ascended and descended 3 stairs then ambulated 70 feet back to her room and was left at the edge of bed with alarm and call light. A. Patient tolerated ambulation and stair training well, she has met all goals at this time. P. Continue POC until Discharge.
--- NOTE | 2018-06-07 16:13 | OTI REPORT ---
Thank you for the referral of Paulina Bernabe. She was seen on 06/06/18 for an occupational therapy inpatient evaluation status post lumbar fusion. SUBJECTIVE: The patient is a 73-year-old female who is being seen secondary to a lumbar fusion. The patient lives in [place] with her . Her was present during the session today but he had a boot on and said that he had an Achilles tear, so he will not be able to help out completely with lower extremity dressing tasks. Prior to admission the patient was independent with ADLs. PAST MEDICAL HISTORY: Past medical history can be found in the patient's medical record. OBJECTIVE FINDINGS: Activities of daily living: The patient was instructed in the location worker, sock aide, bath sponge, and shoe horn. The patient used location worker to don and doff pants. She donned socks with sock aide with min assist and doffed socks with min assist. Bed mobility: The patient was educated on log rolling and practiced this in bed. The patient log rolled from supine to sidelying to sitting position. The patient then log rolled back into bed. Transfers: The patient was able to complete a sit to stand transfer with mod assist. ASSESSMENT: The patient was educated in log rolling and adaptive devices. The patient was issued adaptive devices for increased independence at home. Short-Term Goals: To be met by discharge from inpatient: Patient will be able to dress lower extremities with modified independence. Patient will complete log rolls with all bed transfers. Patient will complete all toilet transfers independently. Long-Term Goals: To be met following discharge from inpatient: Patient will return home, demonstrating independence and safety with all ADLs with use of adaptive devices. TREATMENT PLAN: Patient will be seen one more time tomorrow morning to make sure that she can use all equipment independently. INITIAL TREATMENT: Treatment today consisted of the initial evaluation activities only. FREDY
--- NOTE | 2018-06-07 16:35 | OT.PROG ---
Progress Note Progress Note: S: pt stated that she was ready to get dressed and go home. O: tx consisted of donning LE underwear, pants, socks and shoes with use of renal dietitian, sock aide and long handled shoe horn. pt needed x2 verbal cues for positioning of equipment. pt completed donning of UE bra and shirt independently. pt was educated on donning brace and completed donning brace independently. A: pt did well in ADL tasks. pt was safe and able to dress self independently. P: continue POC
== END 2018-06-07 13:12 | disposition home or self-care (01) | DRG 455 ==
LOC: OPS 06-05 06:06 → MED/SURG 06-05 15:40
PROVIDERS: ADMIT Neurological Surgery; ATTEND Neurological Surgery